=== PATIENT | female | born 1955 | race African-American/Black ===

== ENCOUNTER 2017-07-28 13:48 | Emergency (ER) | payer MEDICAID ==
[~2017-07-28] VITALS: Ht 170.2 cm; Wt 84.0 kg
[2017-07-28 19:13] LABS: BASOPHILS % 1.4 % (0.0-2.0); EOSINOPHILS % 1.9 % (0.0-5.0); HEMATOCRIT. 41.6 % (36.0-48.0); HEMOGLOBIN. 13.6 g/dL (12.0-16.0); MEAN CORPUSCULAR HEMOGLOBIN 28.4 pg (28.0-32.0); MEAN CORPUSCULAR VOLUME 87.2 fL (81.0-99.0); MEAN PLATELET VOLUME 7.3 fl (7.4-10.4); MONOCYTES % 7.8 % (2.0-8.0); NEUTROPHILS % 42.9 % (40.0-76.0); PLATELET 272 x1000/uL (130-400); RED BLOOD CELL COUNT 4.77 mill/uL (4.2-5.4)
[2017-07-28 19:18] LABS: CHLORIDE 107 mEq/L (98-107)
[2017-07-28 19:27] LABS: CARBON DIOXIDE 29 mEq/L (21-32)
[2017-07-28 20:15] VITALS: BP 138/79
== END 2017-07-28 20:20 | disposition home or self-care (01) ==
LOC: ER 13:48
DX: I10 Essential (primary) hypertension (principal); F17.200 Nicotine dependence, unspecified, uncomplicated; M19.90 Unspecified osteoarthritis, unspecified site; M79.7 Fibromyalgia
CPT/HCPCS: 36415; 80053; 85025; 99284; Z7610; 81003